=== PATIENT | male | born 1940 | race Caucasian/White ===

== ENCOUNTER 2017-08-20 13:45 | Outpatient (CLI) ==
[2013-06-09 22:14] VITALS: BMI 31.9
--- NOTE | 2017-08-20 14:32 | CT ---
EXAM: CT of the abdomen pelvis without contrast History: Lower abdominal pain. Comparison: CT abdomen pelvis 06/09/2013 Technique: Multiplanar CT images through the abdomen pelvis were obtained without the administration of IV contrast Findings: Lung bases are free of consolidation. No acute osseous abnormalities. Gallbladder is not seen in likely has been surgically removed. No focal liver or splenic lesions. A therosclerotic vascular calcifications. No peripancreatic inflammation. Stable small benign left ad renal adenoma. Right adrenal gland is unremarkable. A few small punctate 2 mm nonobstructing right renal calculi. No hydronephrosis. 1 cm exophytic lesion within the anterior midpole of the right ki dney. No inflammatory stranding. No free air and no ascites. No bladder wall thickening. Prostate is not enlarged. No perirectal inflammation. Scattered colonic stool. Impression: 1. No acute intra-abdominal or pelvic process. 2. Nonobstructing right nephrolithiasis. 3. 1 cm indeterminate exophytic right renal lesion might be too small to see with ultrasound. Consi tru correlation with an MRI renal mass protocol.
== END 2017-08-20 13:46 | disposition home or self-care (01) ==
LOC: RAD 13:45
PROVIDERS: ATTEND Family Medicine
DX: R10.30 Lower abdominal pain, unspecified (principal)
CPT/HCPCS: 74176

== ENCOUNTER 2017-10-03 09:00 | Outpatient (RCR) ==
[2013-06-09 22:14] VITALS: BMI 31.9
--- NOTE | 2017-09-25 10:42 | RS.OPPTEV2 ---
Date of Note: 09/25/17 Visit #: 1 Date of Evaluation: 09/25/17 Payer Source: MEDICARE Surgery Performed?: No Treatment Diagnosis: plantar fasciitis L foot History of Condition/Mechanism of Injury:: pt reports pain began approx 06/30 after being on vacation in [place] and doing a lot of walking on the beach. Prior Level of Function.....Patient was independent with: ADL's, Self Care, Work /Vocation, Ambulation/Mobility, Community Integration/Access Functional Limitations: Standing, Ambulation, Community Access/Integration Current Subjective/complaints:: pt states that the MD has already sent him to [employer] to get inserts for shoes and has been stretching with heel hanging off of the step. Treatment Side (optional): Left *Precautions: n/a Medical History Medical History: Unremarkable Surgical History: Cholecystectomy Smoking Status: Former smoker Hx Home Medications: meloxicam Patient's Goals: decrease pain L foot Pain Assessment - Pain Description Pain Location: L foot Pain Description: Burning, Sharp Current Pain Intensity: 0 at rest increases to 4/5 with standing/amb. Functional Outcome Measure LE Functional Scale: 36 (55%) - G Codes & Severity Modifier G Codes & Modifier: mobility: walking and moving around : current CK. mobility : walking and moving around: goal CI Source of G Code score: LE functional scale Observation - Observation Inspection: In standing; noted that pt feet are pronated L worse than R Posture: Forward Head, Rounded Shoulders Gait - Gait Pattern Gait Comments: pt amb with decreased heel strike on L General Range of Motion: WFL's Muscle Strength: 5/5 BUE and BLE Ankle ROM: Bilaterally WFL's Ankle Muscle Strength: Bilaterally WFL's - Left Ankle ROM Left Ankle/Foot ROM Limitations: Soft Tissue Tightness Comments: L ankle ROM WFL's, tightness noted in heel cord with point tenderness to medial heel - Left Ankle Strength Left Dorsiflexion: 5 Normal Left Plantar flexion: 5 Normal Left Eversion: 5 Normal Left Inversion: 5 Normal - Right Ankle Strength Right Dorsiflexion: 5 Normal Right Plantarflexion: 5 Normal Right Eversion: 5 Normal Right Inversion: 5 Normal Palpation Palpation Findings: Tenderness Comments:: noted in L medial heel Sensation - Sensation Right Upper Extremity: Intact/Normal Left Upper Extremity: Intact/Normal Right Lower Extremity: Intact/Normal Left Lower Extremity: Intact/Normal Balance - Sitting Balance Static Sitting Balance: Normal Dynamic Sitting Balance: Normal - Standing Balance Static Standing Balance: Normal Dynamic Standing Balance: Normal - Treatment Modality: Ultrasound Parameters/Method Applied: 1.5w/cm2 x 7 mins Treatment Area: L plantar surface of foot and heel - Heat/Cryotherapy Treatment: Cryotherapy Comments:: cold pack to L heel Interventions - Exercise/Activities/Manual Therapy Exercises/Activities: pt performed towel stretch to L heel cord, df/PF with blue tband, stretch rolling tennis ball on bottom of foot. Manual Therapy: n/a HOME EXERCISE PROGRAM: pt given written HEP including: DF/PF with blue t band, towel stretch to heel cord, standing gastroc stretch, frozen water bottle stretch - Charges Timed Code Treatment Minutes: 41 Total Treatment Time: 50 Procedures billed for this date of service:: [place], ultrasound, CP EVALUATION COMPLEXITY LEVEL EVALUATION COMPLEXITY LEVEL: HISTORY: Low (plantar fasciitis), EXAM OF BODY SYSTEMS: Medium (pain, muscle tightness, muscle weakness), CLINICAL PRESENTATION : Low, CLINICAL DECISION MAKING: Low Assessment Assessment: pt presents with pain and muscle tightness due to plantar fasciitis L foot. pt with difficulty standing/amb due to pain in heel. Patient Education: Home Exercise Program, Education of Plan of Care Rehab Potential: Good Problems/Comments: Advised pt to get a second set of inserts to keep in dress shoes if he does not wear tennis shoes all of the time. Short Term Goals Goal #1: pt report decreased pain allowing him to perform activities in the home. Goal to be met by: 10/09/17 Goal #2: pt independent with initial HEP Goal to be met by: 10/09/17 Goal #3: pt with decreased heel cord tightness L foot. Goal to be met by: 10/09/17 Platen Grinder Goals Goal #1: pt report decreased pain L foot allowing pt to perform normal activities. Goal to be met by: 10/23/17 Goal #2: pt independent with HEP to maintain gains after dc to prevent reoccurence Goal to be met by: 10/23/17 Goal #3: pt amb community distances with good heel strike/toe off pattern. Goal to be met by: 10/23/17 Plan - Treatment to be Provided Procedures: Therapeutic Exercises, Manual Therapy, Massage, Patient Education Modalities: Ultrasound/Phonophoresis, Class IV Laser, Cryotherapy, Hot Packs - Treatment Plan Frequency: 2 X week Duration: 4 weeks ORDER # VISITS AND/OR THROUGH DATE: 10/23/17 - Treatment Code (1) Left foot pain Code(s): M79.672 - PAIN IN LEFT FOOT (2) Plantar fasciitis of left foot Code(s): M72.2 - PLANTAR FASCIAL FIBROMATOSIS
--- NOTE | 2017-09-27 10:04 | RS.OPPTDN ---
Subjective Date of Note: 09/27/17 Visit #: 2 Date of Evaluation: 09/25/17 Payer Source: MEDICARE Treatment Diagnosis: plantar fasciitis L foot Current Subjective/complaints:: Patient reports increased soreness with weight- bearing following last session. States he is working on HEP and using ice bottle as instructed. *Precautions: n/a Pain Assessment - Pain Description Pain Location: left heel, mid foot Current Pain Intensity: mild with weight-bearing and stretching - Treatment Modality: Ultrasound Parameters/Method Applied: [id number] at 1.5w/cm2 to the left heel and along the plantar surface prior to EX. Patient Position: Supine - Heat/Cryotherapy Treatment: Cryotherapy ([id number] ice massage to the left heel and plantar surface of foot. Patient in supine. ) Interventions - Exercise/Activities/Manual Therapy Exercises/Activities: [id number] Assisted stretching of the left gastroc, soleus, and plantar surface. Stretching of toes of the left foot. Isometric left ankle df, sets of 5 reps. Reviewed towel stretch for left heel cord, df/PF with blue tband, stretch rolling tennis ball or ice bollte on bottom of foot. Instructed to add heel cord stretch at wall, planter fascia/toe flexor stretch in sitting, and isometric left ankle df. Total minutes of Exercise: 19mins Manual Therapy: n/a HOME EXERCISE PROGRAM: pt given written HEP including: DF/PF with blue t band, towel stretch to heel cord, standing gastroc stretch, frozen water bottle stretch - Charges Timed Code Treatment Minutes: 39mins Total Treatment Time: 42mins Procedures billed for this date of service:: US, EX, CP Assessment: Patient motivated to work on HEP and home care as instructed. Patient Education: Body/Joint mechanics, Home Exercise Program Patient demonstrates compliance with HEP?: Yes Short Term Goals Goal #1: pt report decreased pain allowing him to perform activities in the home. Goal to be met by: 10/09/17 Progress towards Goal:: Progressing Goal #2: pt independent with initial HEP Goal to be met by: 10/09/17 Progress towards Goal:: Progressing Goal #3: pt with decreased heel cord tightness L foot. Goal to be met by: 10/09/17 Grinder [employer]ameter Goals Goal #1: pt report decreased pain L foot allowing pt to perform normal activities. Goal to be met by: 10/23/17 Goal #2: pt independent with HEP to maintain gains after dc to prevent reoccurence Goal to be met by: 10/23/17 Goal #3: pt amb community distances with good heel strike/toe off pattern. Goal to be met by: 10/23/17 Plan PLAN OF CARE EXPIRES ON:: 10/23/17 ORDER # VISITS AND/OR THROUGH DATE: 10/23/17 PLAN: Continue modalities and progress exercise to reduce pain and improve functional gait.
--- NOTE | 2017-10-01 10:28 | RS.OPPTDN ---
Subjective Date of Note: 10/01/17 Visit #: 3 Date of Evaluation: 09/25/17 Payer Source: MEDICARE Treatment Diagnosis: plantar fasciitis L foot Current Subjective/complaints:: Patient reports he had 2 days with little discomfort but but had increased pain yesterday following work at home that including getting on a ladder. States he is doing HEP and focusing on ice bottle to massage plantar surface of foot. *Precautions: n/a Pain Assessment - Pain Description Pain Location: Left foot mid plantar surface and medial heel Current Pain Intensity: mild to mod soreness - Treatment Modality: Ultrasound Parameters/Method Applied: [id number] at 1.5w/cm2 to the left mid foot plantar surface and along the medial heel prior to MT. Patient Position: Supine - Heat/Cryotherapy Treatment: Cryotherapy ([id number] ice massage to the entire left foot plantar surface to end treatment session. Patient in supine. ) Interventions - Exercise/Activities/Manual Therapy Exercises/Activities: x3mins. Passive heel cord stretching and isometric ankle df. Reviewed HEP. Total minutes of Exercise: 3mins Manual Therapy: [id number]. Soft and deep tissue massage to the left foot plantar fascia. Myofascial stretching of plantar fascia. Passive stretching of the gastroc and soleus. Total minutes of Manual Therapy: 15mins HOME EXERCISE PROGRAM: pt given written HEP including: DF/PF with blue t band, towel stretch to heel cord, standing gastroc stretch, frozen water bottle stretch - Charges Timed Code Treatment Minutes: 38mins Total Treatment Time: 42mins Procedures billed for this date of service:: US, MT, CP Assessment: Patient consistently working on HEP. Patient Education: Body/Joint mechanics, Home Exercise Program Patient demonstrates compliance with HEP?: Yes Short Term Goals Goal #1: pt report decreased pain allowing him to perform activities in the home. Goal to be met by: 10/09/17 Progress towards Goal:: Progressing Goal #2: pt independent with initial HEP Goal to be met by: 10/09/17 Progress towards Goal:: Partially Met Goal #3: pt with decreased heel cord tightness L foot. Goal to be met by: 10/09/17 Progress towards Goal:: Progressing Group Home Goals Goal #1: pt report decreased pain L foot allowing pt to perform normal activities. Goal to be met by: 10/23/17 Progress towards goal: Progressing Goal #2: pt independent with HEP to maintain gains after dc to prevent reoccurence Goal to be met by: 10/23/17 Goal #3: pt amb community distances with good heel strike/toe off pattern. Goal to be met by: 10/23/17 Plan PLAN OF CARE EXPIRES ON:: 10/23/17 ORDER # VISITS AND/OR THROUGH DATE: 10/23/17 PLAN: Continue modalities, manual therapy, and progress exercise to reduce pain and increase functional activity level.
--- NOTE | 2017-10-03 12:02 | RS.OPPTDN ---
Subjective Date of Note: 10/03/17 Visit #: 4 Date of Evaluation: 09/25/17 Payer Source: MEDICARE Treatment Diagnosis: plantar fasciitis L foot Current Subjective/complaints:: Patient reports he is doing much better. States he has had little to no pain the last 2 days. States he feels he can continue HEP and stop therapy at this time. present to see how to assist patient with stretching and ice massage. *Precautions: n/a Pain Assessment - Pain Description Pain Location: left foot heel and mid plantar surface Pain Description: soreness, tender Current Pain Intensity: mild - Treatment Modality: Ultrasound Parameters/Method Applied: [id number] at 1.5w/cm2 to the left foot plantar surface and medial edge of heel prior to MT. Patient Position: Supine - Heat/Cryotherapy Treatment: Cryotherapy (x8mins ice massage to the plantar surface of the left foot and instruction for to assist at home. ) Interventions - Exercise/Activities/Manual Therapy Exercises/Activities: x5mins. Passive heel cord stretching and isometric ankle df. Reviewed HEP. Total minutes of Exercise: 5mins Manual Therapy: [id number]. Soft and deep tissue massage to the left foot plantar fascia. Myofascial stretching of plantar fascia. Passive stretching of the gastroc and soleus. Total minutes of Manual Therapy: 15mins HOME EXERCISE PROGRAM: pt given written HEP including: DF/PF with blue t band, towel stretch to heel cord, standing gastroc stretch, frozen water bottle stretch - Objective Findings Observations,measurements,etc.: Increased Loer Extremity Functional Index score to 49/80 or 39% deficit (was 36/80 or 55% on Evaluation) - Charges Timed Code Treatment Minutes: 38mins Total Treatment Time: 43mins Procedures billed for this date of service:: US, MT, CP Assessment: Patient has progressed well with reports of improvement and being ready for discharge with HEP. HE has met 4 of 6 treatment goals. Patient Education: Education of diagnosis, Body/Joint mechanics, Home Exercise Program, Home Safety, Activity Modification Patient demonstrates compliance with HEP?: Yes Short Term Goals Goal #1: pt report decreased pain allowing him to perform activities in the home. Goal to be met by: 10/09/17 Progress towards Goal:: Met Goal #2: pt independent with initial HEP Goal to be met by: 10/09/17 Progress towards Goal:: Met Goal #3: pt with decreased heel cord tightness L foot. Goal to be met by: 10/09/17 Progress towards Goal:: Met [facility] Goals Goal #1: pt report decreased pain L foot allowing pt to perform normal activities. Goal to be met by: 10/23/17 Progress towards goal: Partially Met Goal #2: pt independent with HEP to maintain gains after dc to prevent reoccurence Goal to be met by: 10/23/17 Progress towards goal: Met Goal #3: pt amb community distances with good heel strike/toe off pattern. Goal to be met by: 10/23/17 Progress towards goal: Partially Met Plan PLAN OF CARE EXPIRES ON:: 10/23/17 ORDER # VISITS AND/OR THROUGH DATE: 10/23/17 PLAN: Discharge with HEP.
--- NOTE | 2017-10-08 15:10 | RS.OPPTDC ---
Date of Discharge: 10/03/17 Date of Evaluation: 09/25/17 Number of Visits: 4 Treatment Diagnosis: plantar fasciitis L foot Current Level of Function: pt is independent with HEP. pt with reduced heel cord tightness. pt has met 4 of 6 goals. Current Complaints/Gains: pt reports improvement with little to no L foot/heel pain in last few days. pt states he is ready for DC and will continue HEP. Doing more ADL's at home. Reports does continue to have increased pain with distance walking. Pain Assessment - Pain Description Pain Location: L foot/heel pain Other Comments regarding Pain:: little to no pain at rest, pt with some increased pain with distance walking. Functional Outcome Measure LE Functional Scale: 49 (39%) - G Codes & Severity Modifier G Codes & Modifier: mobility walking and moving around goal CI. mobility walking and moving DC CJ Source of G Code score: LE functional index Gait - Gait Pattern General Gait Pattern Observation: No Deviations/Normal General Range of Motion: WFL's Muscle Strength: WFL's Interventions - Exercise/Activities/Manual Therapy Exercises/Activities: n/a Manual Therapy: n/a HOME EXERCISE PROGRAM: pt given written HEP including: DF/PF with blue t band, towel stretch to heel cord, standing gastroc stretch, frozen water bottle stretch - Charges Timed Code Treatment Minutes: n/a Total Treatment Time: n/a Procedures billed for this date of service:: n/a Assessment Assessment: pt has met 4 out of 6 goals. Much improved with decreased pain as well as reduced heel cord tightness Patient Education: Home Exercise Program, Education of Plan of Care Rehab Potential: Good Short Term Goals Goal #1: pt report decreased pain allowing him to perform activities in the home. Goal to be met by: 10/09/17 Progress towards Goal:: Met Goal #2: pt independent with initial HEP Goal to be met by: 10/09/17 Progress towards Goal:: Met Goal #3: pt with decreased heel cord tightness L foot. Goal to be met by: 10/09/17 Progress towards Goal:: Met Group Home Goals Goal #1: pt report decreased pain L foot allowing pt to perform normal activities. Goal to be met by: 10/23/17 Progress towards goal: Partially Met Goal #2: pt independent with HEP to maintain gains after dc to prevent reoccurence Goal to be met by: 10/23/17 Progress towards goal: Met Goal #3: pt amb community distances with good heel strike/toe off pattern. Goal to be met by: 10/23/17 Progress towards goal: Partially Met Plan Comments: pt request DC feels he is doing well and will continue HEP
== END 2017-10-12 23:59 ==
PROVIDERS: ATTEND Podiatrist
DX: M72.2 Plantar fascial fibromatosis (principal); M79.672 Pain in left foot